=== PATIENT | male | born 1955 | race African-American/Black ===

== ENCOUNTER → 2016-04-23 | Outpatient (CLI) | payer MEDICARE, BC ==
[2016-04-16] VITALS: BP 134/92
[~2016-04-23] MED LIST: LEVO750T31 PO
--- NOTE | 2016-04-23 09:35 | RAD ---
PROCEDURE MRI of the lumbar spine without contrast 04/23/2016 HISTORY Low back pain for 10 years worsening of late. TECHNIQUE Unenhanced T1 weighted, T2 weighted and inversion recovery sagittal and T1 and T2 weighted axial images of the lumbar spine were obtained. FINDINGS Minimal S-shaped curvature of the thoracolumbar spine is noted. Degenerative signal changes are seen involving all of the discs of the lumbar spine. Degenerative signal changes are seen within the marrow surrounding these discs. The conus medullaris is normal in morphology, position, and signal characteristics. The L1-2 disc space is within normal limits. At the L2-3 disc space there is a mild generalized disc bulge. Degenerative changes are seen involving the facet joints bilaterally. There is mild ligamentum flavum hypertrophy bilaterally. These findings when combined do not result in significant central spinal canal or neural foraminal stenosis. At the L3-4 disc space there is a mild generalized disc bulge. This is eccentric to the right. Degenerative changes are seen involving the facet joints bilaterally. There is mild ligamentum flavum hypertrophy bilaterally. There is prominence of the posterior epidural fat. These findings when combined result in mild central spinal canal stenosis. Very mild right neural foraminal stenosis is seen. The left neural foramina is patent. At the L4-5 disc space there is a mild generalized disc bulge. This is eccentric to the right. Degenerative changes are seen involving the facet joints bilaterally. There is mild ligamentum flavum hypertrophy bilaterally. These findings when combined result in mild central spinal canal stenosis. Very mild right neural foraminal stenosis is seen. The left neural foramina is patent. At the L5-S1 disc space there is a mild to moderate generalized disc bulge. This is eccentric to the left. Degenerative changes are seen involving the facet joints bilaterally. These findings when combined do not result in significant central spinal canal stenosis. Mild left neural foraminal stenosis is seen. The right neural foramina is patent. IMPRESSION The changes of degenerative disc disease are seen throughout the mid and lower lumbar spine. These findings result in mild central spinal canal stenosis at L3-4 and L4-5. Very mild right neural foraminal stenosis is seen at L3-4 and L4-5. Mild left neural foraminal stenosis is seen at L5-S1. Electronically signed by: Chris Crum MD (Apr 23, 2016 09:33:46)
--- NOTE | 2016-04-23 10:26 | RAD ---
Examination: MRI of the left knee without contrast HISTORY History of left knee pain status post fall. COMPARISON None available. TECHNIQUE Multiplanar, multisequence MR imaging of the left knee was performed without contrast. Findings : The anterior cruciate ligament, posterior cruciate ligament are intact. The medial meniscus, lateral meniscus grossly appears intact. The extensor mechanism appears intact. The medial collateral ligament, lateral collateral ligamentous complex including the fibular collateral ligament, biceps femoris tendon, popliteus tendon are intact. The attachment of the iliotibial band appears intact. There is mild increased signal identified in the quadriceps tendon and infrapatellar tendon likely mild tendinosis. There is a deep fissuring of cartilage identified in the medial compartment, patellofemoral compartment. There is mild superficial fraying of cartilage at the lateral compartment. Subchondral cystic change identified in the lateral patellar facets region. Small knee joint effusion. The medial retinaculum, lateral retinaculum appears intact. The visualized neurovascular bundle grossly appears unremarkable. Small knee joint effusion. Tiny popliteal cyst is noted. Small osteophyte formation and in the patellofemoral compartment. IMPRESSION - No evidence of meniscal tear identified. - Small knee joint effusion.Tiny popliteal cyst identified. - Grade 2 chondromalacia medial, patellofemoral compartment. Mild to moderate DJD changes identified in the patellofemoral compartment. - Mild tendinosis quadriceps tendon. Electronically signed by: Leonel Pagan (Apr 23, 2016 10:25:29)
== END | disposition home or self-care (01) ==
LOC: MRI 07:06
PROVIDERS: ATTEND Orthopaedic Surgery
DX: M25.562 Pain in left knee (principal); M54.5 Low back pain
CPT/HCPCS: 72148; 73721

== ENCOUNTER → 2016-05-09 | Outpatient (CLI) | payer MEDICARE, BC ==
[2016-04-16] VITALS: BP 134/92
--- NOTE | 2016-05-08 21:45 | PN ---
DATE: CHIEF COMPLAINT: Low back and left greater than right lower extremity pain. HISTORY OF PRESENT ILLNESS: This is a 60-year-old male who presents with history of pain in the low back and bilateral lower extremities, left greater than right after a fall on the ice day after 2015. The patient reports that before that he was doing fairly well and had some back pain in the past. He fell through a deck at one point several years ago ____ the fall on the ice in February 2016 was significant that he fell on his left knee, had some significant pain in the knee and the kneecap, has been walking off balance which has been aggravating his back pain as well. The patient reports he has numbness and stabbing in the low back radiating to left lower extremity, mostly in the anterior lateral thigh, but some in the posterior gluteus bilaterally as well and across the low back bilaterally fairly equally. The patient reports it awakens him from sleep at least 2-3 times at night, does not affect his bowel or bladder control, but does affect his ability to walk. He is not using any assistive devices; however, to ambulate. The patient has had previous physical therapy in the past, counseling, does some exercises on his own, trigger point injections and epidural injections in 2007, which were very helpful ____. The patient did have an MRI scan of the lumbar spine dated 04/23/2016, which shows some generalized disk bulging and degenerative disk changes throughout the mid and lower lumbar spine resulting in mild central spinal stenosis at L3-L4 and L4-L5 level and very mild right neural foraminal stenosis at L3, L4, and L5 and mild left neural foraminal stenosis at L5-S1. The patient reports no loss of motor function with significant pain, significant fatigability in his left leg compared to the right with a constant, stabbing, shooting pain in the left lower extremity as noted. The patient rates his disability rate from 0-10, 10 being the worst, as a 10 with family home responsibilities, recreation, occupation, social activities, sexual behavior, 7 with self-care, 5 with life support activities. PAST MEDICAL HISTORY: Significant for thyroid nodules, pneumonia, diabetes, borderline, not treated, paralysis in his feet and numbness in the feet, history of spinal stenosis and knee joint pain and degenerative osteoarthritis of the knees. PREVIOUS SURGERY: Include a foot surgery of some sort in 2014, he is unsure of the specifics. CURRENT MEDICATIONS: Include morphine 30 mg daily, tizanidine 2 mg daily, lamotrigine 100 mg daily, mirtazapine 15 mg p.r.n., zolpidem 10 mg p.r.n., and diazepam 5 mg p.r.n. FAMILY HISTORY: Significant for hypertension and diabetes in both parents, . SOCIAL HISTORY: The patient does not smoke, does not drink alcohol, no tobacco. He is and lives with his spouse and lives locally in [place], [place]. REVIEW OF SYSTEMS: The patient's review of systems is positive for those items mentioned in history of present illness. All systems were reviewed and otherwise negative. It is complete, full and well documented on the patient's chart. PHYSICAL EXAMINATION: VITAL SIGNS: Today, the patient's blood pressure is 154/89, pulse 88, respirations 18, temperature 98.3 degrees Fahrenheit, height is 5 feet 11 inches, and weight is 204 pounds. GENERAL: The patient is awake, alert, oriented, appropriate, very pleasant demeanor. HEENT: Head shows normocephalic and atraumatic. Extraocular movements are intact and symmetrical. Oral cavity, mucous membranes moist and pink. Dentition is intact. NECK: Shows anterior throat supple without palpable lymphadenopathy noted. Swallow reflex is symmetrical. CHEST: Shows normal on inspection with breath sounds clear to auscultation bilaterally. HEART: Shows S1 and S2 clear. No murmurs are auscultated. ABDOMEN: Soft, nontender, and nondistended. No palpable organomegaly is noted. No rebound or guarding demonstrated. BACK: The patient's back shows spine grossly midline. Normal appearing thoracic kyphosis, cervical lordotic curvature, and lumbar lordotic curvature. The patient's musculature shows symmetrical in the lumbar distribution. No previous bruises, lesions, rashes or scars are noted throughout the spine with palpation, it is moderately tender with palpation only in the low lumbar distribution bilaterally, but is very firm, very tender, but normal muscle girth, but significant tenderness in these areas bilaterally. The sacrum and sacroiliac regions show no tenderness with palpation bilaterally. The patient shows full rotational motion of lumbar spine, both laterally greater than 10 degrees right and left as well as extension greater than 10 degrees, forward flexion 45 degrees without difficulty. EXTREMITIES: The patient's lower extremities show deep tendon reflexes at 2+ in the patellar, 1+ tendo calcaneus tendons. Motor exam is strong with approximately 4 on a scale of 5 left dorsiflexion, extension, and 5/5 with right dorsiflexion, extension, quadriceps and hamstring flexion are 5/5 and equal and symmetrical. Peripheral pulses are 1+ posterior tibial and dorsalis pedis pulses. No peripheral edema is noted. No clubbing or cyanosis. Lower extremities are warm and dry to touch, equal in color and appearance. The patient has a very slightly positive straight leg raise on the left at about 45 degrees, but is decreased with knee flexion, right side is negative. Gaenslen's and Brady's maneuvers are negative bilaterally. The patient is able to stand, stand on his toes without difficulty or loss of balance, has good ambulation without significant gait disturbance for short distance in the office and is able to heel-toe step for several steps without difficulty as well. IMPRESSION: 1. This is a 60-year-old male 2-month history of increasing low back pain into the left greater than right lower extremities, but present bilaterally. 2. MRI scan as noted. 3. History of borderline diabetes. PLAN: Options were discussed with the patient including conservative medical management, physical therapy and interventional techniques. He would like to pursue interventional techniques. We discussed a lumbar epidural steroid injection using description as well as anatomical models to describe the procedure. Risks were then discussed including, but not limited to bleeding, infection, possibility of epidural hematoma, subsequent neurologic compromise, dural punctures, headaches, spinal cord and/or nerve damage, side effects of steroid medication and poor results regarding pain control. The patient understands and wishes to proceed. The patient will return to clinic in approximately 2 weeks for followup, was counseled on return appointment, activity level and side effects to be aware of. DIAGNOSES: Lumbar radiculopathy with lumbar degenerative disk disease. PROCEDURE: Lumbar epidural steroid injection, translaminar approach at the L4-L5 level using C-arm fluoroscopic guidance under sterile prep and drape using local anesthetic. MEDICATIONS INJECTED: Depo-Medrol 120 mg plus 10 mL of preservative-free normal saline and 2 mL of Isovue for contrast. CONDITION ON DISCHARGE: Stable. The patient tolerated procedure well, had no complications. MYAH WU MD DR: Amanda JOB#: [id number] / [id number]
[~2016-05-09] MED LIST changes: +DIAZ5TAB4 PO; +IOHEXOL 180 MG/ML 10 ML VIAL. ONE; +LAMO100T PO; +MIRT15TA3 PO; +MORP30TA PO; +TIZA4TAB PO; +ZOLP10TA4 PO; +methylPREDNISolone ACETATE 40 MG/ML VIAL. ONE; +methylPREDNISolone ACETATE 80 MG/ML VIAL. ONE
== END | disposition home or self-care (01) ==
LOC: PNCL 09:24
PROVIDERS: ATTEND Anesthesiology
DX: M51.16 Intervertebral disc disorders with radiculopathy, lumbar region (principal); E04.1 Nontoxic single thyroid nodule; E11.9 Type 2 diabetes mellitus without complications; M17.12 Unilateral primary osteoarthritis, left knee; M17.11 Unilateral primary osteoarthritis, right knee; Z87.01 Personal history of pneumonia (recurrent); Z83.3 Family history of diabetes mellitus
CPT/HCPCS: 62323; J1030; J1040

== ENCOUNTER → 2016-05-29 | Outpatient (CLI) | payer MEDICARE, BC ==
[2016-04-16] VITALS: BP 134/92
--- NOTE | 2016-05-29 23:21 | PAIN ---
DATE OF SERVICE: 05/29/2016 DIAGNOSES: Lumbar radiculopathy with lumbar degenerative disk disease. HISTORY OF PRESENT ILLNESS: The patient is a 60-year-old male who returns for followup status post lumbar epidural steroid injection x 1. The patient reports about 70% improvement after the first injection and is very pleased with his progress, has an increase in his activity with greater ease and comfort, has been walking and standing much easier and much more comfortably, also being able to sit for longer periods of time, reports the pain is only 2-3 on a scale 10 currently, pain across the low back and his right leg is improved significantly. The patient reports no new motor or sensory deficits, no new bowel or bladder incontinence or other complaints, but again some aching pain, again only minimal with extended standing and walking at this time. PHYSICAL EXAMINATION: VITAL SIGNS: The patient's blood pressure is 142/100, pulse 87, respirations 18, temperature 98.1 degrees Fahrenheit. Height is 5 feet 11 inches, weight is 204 pounds. GENERAL: The patient is awake, alert, oriented, appropriate, very pleasant demeanor. HEENT: Head shows normocephalic, atraumatic. Extraocular movements are intact and symmetrical. Oral cavity, mucous membranes are moist and pink. Dentition is intact. NECK: Shows anterior throat supple without palpable lymphadenopathy noted. Swallow reflex is symmetrical. Neck shows full rotational motion of the cervical spine without difficulty. CHEST: Shows normal on inspection. Breath sounds clear to auscultation bilaterally. HEART: Shows S1 and S2 clear. No murmurs auscultated. ABDOMEN: Soft, nontender, and nondistended. No palpable organomegaly is noted. No rebound or guarding demonstrated. BACK: Shows spine grossly midline. Normal appearing thoracic kyphosis and lumbar lordotic curvature. Lumbar paraspinous musculature shows symmetrical on inspection with palpation, is normal muscle girth with some firm, tender musculature, only very mildly tender diffusely in the lower lumbar distribution of paraspinous muscles only. No tenderness over the sacrum and sacroiliac regions, no radiation of pain. EXTREMITIES: Lower extremities showed deep tendon reflexes at 2+ in the patellar tendons. Motor exam is strong with 4 to 5 on the left. Dorsiflexion and extension 5/5 on the right. Options were discussed with the patient at this time, the patient's old chart was reviewed and his current medication regimen updated. Current review of systems updated today as well. We will proceed with a second lumbar epidural steroid injection today with fluoroscopic guidance. Risks were again discussed including, but not limited to bleeding, infection, possibility of epidural hematoma, subsequent neurologic compromise, dural puncture, headaches, spinal cord and/or nerve damage, side effects of steroid medication and poor results regarding pain control. The patient understands and wishes to proceed. The patient will return to clinic in approximately 2 weeks for followup. He was counseled to return appointment, activity level and side effects to be aware of. DIAGNOSIS: Lumbar radiculopathy with lumbar degenerative disk disease. PROCEDURES: Lumbar epidural steroid injection in translaminar approach at the L4-L5 level using C-arm fluoroscopic guidance under sterile prep and drape using local anesthesia. Medications injected are 120 mg Depo-Medrol plus 10 mL of preservative-free normal saline and 2 mL of Isovue for contrast. CONDITION AT DISCHARGE: Stable. The patient tolerated procedure well, had no complications. MYAH WU MD DR: MARK/thien JOB#: [id number] / [id number]
== END | disposition home or self-care (01) ==
LOC: PNCL 10:44
PROVIDERS: ATTEND Anesthesiology
DX: M51.16 Intervertebral disc disorders with radiculopathy, lumbar region (principal)
CPT/HCPCS: 62323; J1030; J1040

== ENCOUNTER → 2016-06-08 | Outpatient (CLI) | payer MEDICARE, BC ==
[~2016-06-08] VITALS: Ht 180.3 cm; Wt 93.0 kg
[~2016-06-08] MED LIST changes: -IOHEXOL 180 MG/ML 10 ML VIAL. ONE; -methylPREDNISolone ACETATE 40 MG/ML VIAL. ONE; -methylPREDNISolone ACETATE 80 MG/ML VIAL. ONE
[2016-06-08 11:25] VITALS: BP 136/89
--- NOTE | 2016-06-08 13:44 | RAD ---
Indication nodule left lobe of the thyroid. Note is made of an outside imaging study demonstrating an indeterminate suspect nodule in the left lobe of the thyroid for which biopsy was recommended. Image guided biopsy was discussed with the patient. The risks of infection and bleeding were outlined. The possibility of a nondiagnostic study was also discussed. The patient understood the risks associated with the procedure as well as the limitations and wished to proceed. Preliminary ultrasound images were obtained. The known nodule in the left lobe of the thyroid was identified and security systems sales representative images were saved. A medial to lateral approach was selected. The skin was prepped and draped in the routine fashion. Local anesthesia was accomplished with 1% lidocaine. 4 25-gauge FNA samples were obtained as well as 2 Rotex samples. Pathology was present during the study and all retrieved tissue was submitted to pathology. The patient tolerated the procedure unremarkably. At the completion of the procedure the biopsy site was dressed in routine fashion and the patient discharged, after being watched in the department for approximately 20 minutes, with appropriate instructions. IMPRESSION: Successful sampling of dominant nodule in the left lobe of the thyroid under ultrasound guidance
== END | disposition home or self-care (01) ==
LOC: US 11:16
PROVIDERS: ATTEND Surgery
DX: E04.1 Nontoxic single thyroid nodule (principal)
CPT/HCPCS: 60300; 76942

== ENCOUNTER → 2016-06-11 | Outpatient (CLI) | payer MEDICARE, BC ==
[2016-06-08 11:25] VITALS: BP 136/89
[2016-06-11 10:36] LABS: FREE T4 0.8 ng/dL (0.76-1.46)
== END | disposition home or self-care (01) ==
LOC: LAB 09:42
PROVIDERS: ATTEND Surgery
DX: E04.1 Nontoxic single thyroid nodule (principal)
CPT/HCPCS: 36415; 84439; 84443; 84481

== ENCOUNTER → 2020-09-01 | Outpatient (CLI) | payer MEDICARE, BC ==
[2016-06-08 11:25] VITALS: BP 136/89
[~2020-09-01] MED LIST changes: +CONTRAST GIVEN. MC PRN; +IOHEXOL 240 MG/ML 50ML VIAL. PO ONE; +IOHEXOL 300 MG/ML 100ML VIAL. IV ONE; -LAMO100T PO; +LAMO100T8 PO; +MIRT-7 PO; -MIRT15TA3 PO; -TIZA4TAB PO; +TIZA4TAB2 PO
--- NOTE | 2020-09-01 09:47 | RAD ---
Examination: CT of the abdomen pelvis with oral and IV contrast HISTORY: History of umbilical hernia COMPARISON: None available Technique: Axial CT images of the abdomen pelvis were performed with IV and oral contrast. Coronal an d sagittal reformats are performed Exposure: One or more of the following individualized dose reduction techniques were utilized for thi s examination: 1. Automated exposure control 2. Adjustment of the mA and/or kV according to patient size 3. Use of iterative reconstruction technique FINDINGS: The bibasilar lungs are clear. No evidence of free air identified in the abdomen. The liver, spleen, adrenals grossly appears unremarkable. The gallbladder is mildly distended. The stomach is mildly dis tended. The uterus pancreas grossly appears unremarkable. The small bowel is nondilated. Feces and ga s noted in the colon. The appendix is normal. The bilateral kidneys enhance symmetrically. There is a 1.1 cm calculus identified in the left kidney . No evidence of hydronephrosis. The urinary bladder is mildly distended. Small umbilical hernia measuring 1.6 cm containing fat and omentum. Mild degenerative changes thoraca l lumbar spine. IMPRESSION: 1. Small umbilical hernia containing fat and omentum. 2. 1.1 cm calculus left kidney. Electronically signed by: Leonel Pagan MD (09/01/2020 9:45 AM) [id number]
== END ==
LOC: CT 07:46
PROVIDERS: ATTEND Surgery
DX: K42.9 Umbilical hernia without obstruction or gangrene (principal); N20.0 Calculus of kidney; N32.89 Other specified disorders of bladder
CPT/HCPCS: 74177; Q9966; Q9967

== ENCOUNTER 2020-09-20 07:31 | Day surgery (SDC) | payer MEDICARE, BC ==
[~2020-09-20] VITALS: Ht 180.3 cm; Wt 96.0 kg
[2020-09-20 06:52] VITALS: BP 138/88
[~2020-09-20 07:31] MED LIST changes: +BUPIVACAINE-EPI 0.5%-1:200000 MPF 30 ML VIAL. ONE; -CONTRAST GIVEN. MC PRN; +DEXAMETHASONE SOD PHOS 20 MG/5 ML VIAL. ONE; +FAMO20TA5 PO; +FAMOTIDINE 20 MG/2 ML VIAL ONE; +GLIP5TAB10 PO; +HYDROmorphone 2 MG/ML VIAL IVP PRN; +INSULIN LISPRO 100 UNIT/ML 3ML VIAL for OP,RR ONLY. SQ PRN; -IOHEXOL 240 MG/ML 50ML VIAL. PO ONE; -IOHEXOL 300 MG/ML 100ML VIAL. IV ONE; +IV RINGERS,LACTATED 1000ML 1,000 ML IV SCH; +MIDAZOLAM HCL/PF 2 MG/2 ML VIAL. ONE; +ONDANSETRON PF 4 MG/2 ML VIAL. ONE; +PROCHLORPERAZINE 10 MG/2 ML VIAL. IVP PRN; +PROPOFOL 10 MG/ML (20ML) VIAL. IV ONE; +fentaNYL PF VIAL 100 MCG/2 ML VIAL IVP PRN; +fentaNYL PF VIAL 100 MCG/2 ML VIAL ONE
[2020-09-20] MEDS ORDERED: fentaNYL PF VIAL 100 MCG/2 ML VIAL ONE (07:54)
--- NOTE | 2020-09-20 09:08 | DISCH ---
DISCHARGE INSTRUCTIONS Condition on Discharge Condition on Discharge: Stable Activity After Discharge Activity Instructions for Disc: Other, see below (no lifting over 20 lbs X 4 weeks) Driving Instructions after Dis: Other, see below (no driving while taking pain meds) Diet after Discharge Diet after Discharge: Regular Wound Incision Care Wound/Incision Care: Other, see below (keep dressing clean and dry X 72 hours, may then remove and shower) Follow-Up Follow up with: Dr Adorno in 2 weeks in office, call for appointment [phone] SOFIE ADORNO MD Sep 20, 2020 09:08
--- NOTE | 2020-09-20 09:12 | PDOC4 ---
Operative Note Operative Note Operative Note: Preoperative Diagnosis: Umbilical hernia Postoperative Diagnosis: Same Procedure: Umbilical hernia repair with mesh Surgeon: Jorge Board Member: Dorothy Simmons Anesthesia: General EBL: 10 mL Specimen: None Drains: None Complications: None Indication: The patient is a 65-year-old male who is referred with an umbilical hernia. He was offered surgical treatment for repair. The risks of surgery were discussed which include bleeding, infection, visceral injury, pain, recurrence, anesthetic risk, potential need for additional surgery procedure. He understands and would like to proceed. Description: The patient was taken to the operating room and placed supine in the operating table. General anesthesia was performed. The abdomen was prepped with ChloraPrep and draped in a standard surgical manner. A curved infraumbilical incision was made in the skin with a scalpel. Cautery dissection was carried down to the fascia. The umbilical tissue was elevated off the fascia exposing the hernia defect. Further evaluation identified a second defect superior to the umbilical ring defect. We divided the fascial bridge in between creating a larger single defect. A preperitoneal plane was developed circumferentially with cautery and blunt dissection. A large Ventralex ST mesh was then placed in this preperitoneal plane. The mesh was sutured to the fascia at the 12, 3, 6, 9:00 positions using 0 Prolene in a horizontal mattress fashion. The fascial edges were closed over the mesh with 0 Prolene. The umbilical tissue was secured back to the fascia with 0 Vicryl. The subcutaneous tissue was closed with 3-0 Vicryl. The skin was closed with 4-0 Monocryl. The incision was infiltrated with half percent Marcaine with epinephrine. Steri- Strips and a sterile dressing were applied. The patient tolerated the procedure well and was sent to the recovery room in stable condition. At the end of the case all counts were correct. SOFIE ADORNO MD Sep 20, 2020 09:11
[2020-09-20] MEDS ORDERED: INSULIN LISPRO 100 UNIT/ML 3ML VIAL for OP,RR ONLY. SQ ONE (09:30)
[2020-09-20] MEDS ORDERED: MORPHINE SULFATE 2 MG/ML INJ. ONE (09:31)
[2020-09-20] MEDS: MORPHINE SULFATE 2 MG/ML INJ. IVP PRN ×2 (09:33→09:45)
[2020-09-20] MEDS ORDERED: OXYC-325 PO (09:44)
[2020-09-20 10:05] VITALS: BP 143/94
[2020-09-20] MEDS ORDERED: oxyCODONE/APAP 5/325 1 TAB TABLET ONE (10:05)
[2020-09-20] MEDS ORDERED: oxyCODONE/APAP 5/325 1 TAB TABLET PO ONE ×2 (10:15)
[2020-09-20] MEDS ORDERED: glipiZIDE 5 MG TABLET PO SCH (11:00)
[2020-09-20] MEDS ORDERED: FAMOTIDINE 20 MG TABLET. PO SCH (11:00)
[2020-09-20] MEDS ORDERED: tiZANidine 4 MG TABLET. PO SCH (21:00)
== END 2020-09-20 10:35 | disposition home or self-care (01) ==
LOC: SURG 07:31
PROVIDERS: ATTEND Surgery
DX: K42.9 Umbilical hernia without obstruction or gangrene (principal); E11.9 Type 2 diabetes mellitus without complications; M19.90 Unspecified osteoarthritis, unspecified site; F41.9 Anxiety disorder, unspecified; Z79.899 Other long term (current) drug therapy; Z98.890 Other specified postprocedural states; Z88.1 Allergy status to other antibiotic agents; Z88.8 Allergy status to other drugs, medicaments and biological substances; Z20.822 Contact with and (suspected) exposure to COVID-19
CPT/HCPCS: 49585; 82962; 87426; A4364; A4930; A6402; C1781; J0690; J1100; J2250; J2270; J2405; J2704; J3010; J3490; A4452; J1815